=== PATIENT | male | born 1955 | race African-American/Black ===

== ENCOUNTER 2018-01-12 16:52 | Emergency (ER) | payer MEDICAID, MEDICARE, OTHER ==
[~2018-01-12] VITALS: Ht 177.8 cm; Wt 77.0 kg
[2018-01-12] MEDS ORDERED: CEPHALEXIN 250MG CAPSULE PO ONE (20:45)
[2018-01-12] MEDS ORDERED: TETANUS, DIPHTHERIA, PERTUSSIS VAC/PF 0.5ML (>7YR OLD) IM ONE (20:45)
[2018-01-12 21:21] VITALS: BP 121/66
== END 2018-01-12 21:23 | disposition home or self-care (01) ==
LOC: ER 16:52
DX: S91.104A Unspecified open wound of right lesser toe(s) without damage to nail, initial encounter (principal); B35.3 Tinea pedis; F32.9 Major depressive disorder, single episode, unspecified; Z98.890 Other specified postprocedural states; W26.8XXA Contact with other sharp object(s), not elsewhere classified, initial encounter; Y93.89 Activity, other specified; Y92.89 Other specified places as the place of occurrence of the external cause; Y99.8 Other external cause status
CPT/HCPCS: 90471; 90715; 99283

== ENCOUNTER 2021-06-12 14:33 | Emergency (ER) | payer MEDICARE, MEDICAID ==
[~2021-06-12] VITALS: Ht 170.2 cm; Wt 73.0 kg
[2021-06-12] MEDS ORDERED: IBUPROFEN 600MG TABLET PO STA (14:58)
[2021-06-12 15:25] LABS: HEMATOCRIT. 37.7 % (42.0-52.0); HEMOGLOBIN. 12.4 g/dL (14.0-18.0); MEAN CORPUSCULAR HEMOGLOBIN 27.9 pg (28.0-32.0); MEAN CORPUSCULAR VOLUME 84.6 fL (80.0-94.0); MEAN PLATELET VOLUME 8.3 fl (7.4-10.4); PLATELET 272 x1000/uL (130-400); RED BLOOD CELL COUNT 4.45 mill/uL (4.7-6.1); RED CELL DISTRIBUTION WIDTH 14.6 % (11.6-14.6)
[2021-06-12 15:33] LABS: CHLORIDE 108 mEq/L (98-107)
[2021-06-12 15:37] LABS: CLARITY URINE CLEAR (CLEAR); COLOR URINE YELLOW (YELLOW); KETONES URINE NEGATIVE (NEGATIVE); LEUKOCYTE ESTERASE URINE NEGATIVE (NEGATIVE); NITRITE URINE NEGATIVE (NEGATIVE); OCCULT BLOOD URINE NEGATIVE (NEGATIVE); PROTEIN URINE NEGATIVE (NEGATIVE); SPECIFIC GRAVITY URINE 1.015 (1.005-1.030); UROBILINOGEN URINE 0.2 E.U./dL (0.2-1.0)
[2021-06-12 15:56] LABS: PLATELET ESTIMATE NORMAL
[2021-06-12] MEDS ORDERED: NAPR-681 PO (17:59)
[2021-06-12] MEDS ORDERED: CLOT15CR27 TP (17:59)
[2021-06-12] MEDS ORDERED: PENICILLIN G BENZATHINE 2,400,000 UNITS/4ML SYR IM NR (18:00)
[2021-06-12 18:30] VITALS: BP 110/58
== END 2021-06-12 18:35 | disposition home or self-care (01) ==
LOC: ER 14:33
DX: M25.571 Pain in right ankle and joints of right foot (principal); R60.9 Edema, unspecified; N49.9 Inflammatory disorder of unspecified male genital organ; F32.9 Major depressive disorder, single episode, unspecified; M19.90 Unspecified osteoarthritis, unspecified site; Z98.890 Other specified postprocedural states
CPT/HCPCS: 36415; 73610; 80048; 81003; 85025; 86592; 86593; 86780; 93971; 96372; 99285; J0561

== ENCOUNTER 2022-02-05 02:37 | Emergency (ER) | payer MEDICARE, MEDICAID ==
[~2022-02-05] VITALS: Ht 170.2 cm; Wt 76.2 kg
[~2022-02-05 02:37] MED LIST: CLOT15CR27 TP; NAPR-681 PO
[2022-02-05 02:45] VITALS: BP 110/50
[2022-02-05] MEDS ORDERED: AZITHROMYCIN 500 MG TABLET PO ONE (04:30)
[2022-02-05] MEDS ORDERED: CEFTRIAXONE SODIUM 500 MG/VIAL IM ONE (04:30)
[2022-02-05 05:33] LABS: CLARITY URINE CLOUDY (CLEAR); COLOR URINE YELLOW (YELLOW); KETONES URINE NEGATIVE (NEGATIVE); LEUKOCYTE ESTERASE URINE 3+ (NEGATIVE); NITRITE URINE NEGATIVE (NEGATIVE); OCCULT BLOOD URINE TRACE (NEGATIVE); PH URINE 6.5 (4.5-8.0); PROTEIN URINE TRACE (NEGATIVE); SPECIFIC GRAVITY URINE 1.012 (1.005-1.030)
[2022-02-05] MEDS ORDERED: CEPH500C2 MT (05:38)
[2022-02-07 04:07] LABS: NEISSERIA GONORRHOEAE NAA Positive (Negative)
== END 2022-02-05 05:46 | disposition home or self-care (01) ==
LOC: ER 02:37
DX: N39.0 Urinary tract infection, site not specified (principal); Z20.2 Contact with and (suspected) exposure to infections with a predominantly sexual mode of transmission; M19.90 Unspecified osteoarthritis, unspecified site; F32.9 Major depressive disorder, single episode, unspecified; Z96.659 Presence of unspecified artificial knee joint
CPT/HCPCS: 81003; 87086; 87491; 87591; 96372; 99283; J0696

== ENCOUNTER 2022-06-10 00:25 | Emergency (ER) | payer MEDICARE, MEDICAID ==
[~2022-06-10] VITALS: Ht 167.6 cm; Wt 68.3 kg
[~2022-06-10 00:25] MED LIST changes: +CEPH500C2 MT
[2022-06-10 00:48] VITALS: BP 115/64
== END 2022-06-10 05:16 | disposition left against medical advice (07) ==
LOC: ER 00:25
DX: Z53.21 Procedure and treatment not carried out due to patient leaving prior to being seen by health care provider (principal)
CPT/HCPCS: 99281

== ENCOUNTER 2022-06-19 12:03 | Emergency (ER) | payer OTHER, MEDICAID ==
[~2022-06-19] VITALS: Ht 170.2 cm; Wt 76.0 kg
[2022-06-19] MEDS ORDERED: IBUP-2029 MT (14:15)
[2022-06-19] MEDS ORDERED: IBUPROFEN 600MG TABLET PO ONE (14:15)
[2022-06-19 14:26] VITALS: BP 115/66
== END 2022-06-19 15:04 | disposition home or self-care (01) ==
LOC: ER 12:03
DX: M25.571 Pain in right ankle and joints of right foot (principal); M25.471 Effusion, right ankle; F17.210 Nicotine dependence, cigarettes, uncomplicated
CPT/HCPCS: 73610; 99283

== ENCOUNTER 2022-08-04 02:31 | Emergency (ER) | payer OTHER, MEDICAID ==
[~2022-08-04] VITALS: Ht 170.2 cm; Wt 77.0 kg
[~2022-08-04 02:31] MED LIST changes: +IBUP-2029 MT
[2022-08-04 02:51] VITALS: BP 100/58
[2022-08-04 03:58] LABS: CLARITY URINE CLEAR (CLEAR); COLOR URINE YELLOW (YELLOW); KETONES URINE NEGATIVE (NEGATIVE); LEUKOCYTE ESTERASE URINE 3+ (NEGATIVE); NITRITE URINE NEGATIVE (NEGATIVE); OCCULT BLOOD URINE NEGATIVE (NEGATIVE); PH URINE 5.5 (4.5-8.0); PROTEIN URINE NEGATIVE (NEGATIVE); SPECIFIC GRAVITY URINE 1.014 (1.005-1.030); UROBILINOGEN URINE 0.2 E.U./dL (0.2-1.0)
[2022-08-04] MEDS ORDERED: LEVO-65 MT (05:29)
[2022-08-04] MEDS ORDERED: CEFTRIAXONE SODIUM 500 MG/VIAL IM ONE (05:45)
== END 2022-08-04 06:45 | disposition home or self-care (01) ==
LOC: ER 02:31
DX: N45.1 Epididymitis (principal); Z98.890 Other specified postprocedural states; Z79.899 Other long term (current) drug therapy
CPT/HCPCS: 74176; 81003; 99284

== ENCOUNTER 2022-08-10 12:58 | Emergency (ER) | payer OTHER, MEDICAID ==
[~2022-08-10] VITALS: Ht 162.6 cm; Wt 75.0 kg
[~2022-08-10 12:58] MED LIST changes: +LEVO-65 MT
[2022-08-10 13:07] VITALS: BP 104/60
[2022-08-10 15:41] LABS: CLARITY URINE CLEAR (CLEAR); COLOR URINE YELLOW (YELLOW); KETONES URINE NEGATIVE (NEGATIVE); LEUKOCYTE ESTERASE URINE NEGATIVE (NEGATIVE); NITRITE URINE NEGATIVE (NEGATIVE); OCCULT BLOOD URINE NEGATIVE (NEGATIVE); PH URINE 6.5 (4.5-8.0); PROTEIN URINE NEGATIVE (NEGATIVE); SPECIFIC GRAVITY URINE 1.014 (1.005-1.030); UROBILINOGEN URINE 0.2 E.U./dL (0.2-1.0)
[2022-08-10 17:09] LABS: EOSINOPHILS % 3.5 % (0.0-5.0); HEMATOCRIT. 40.7 % (42.0-52.0); HEMOGLOBIN. 13.6 g/dL (14.0-18.0); LYMPHOCYTES % 24.9 % (20.0-50.0); MEAN CORPUSCULAR HEMOGLOBIN 28.1 pg (28.0-32.0); MEAN CORPUSCULAR VOLUME 84.5 fL (80.0-94.0); MEAN PLATELET VOLUME 8.2 fl (7.4-10.4); NEUTROPHILS % 56.6 % (40.0-76.0); PLATELET 287 x1000/uL (130-400); RED BLOOD CELL COUNT 4.82 mill/uL (4.7-6.1); RED CELL DISTRIBUTION WIDTH 14.5 % (11.6-14.6)
[2022-08-10 17:18] LABS: CHLORIDE 109 mEq/L (98-107)
[2022-08-10 17:19] LABS: PROTHROMBIN TIME 10.4 sec (9.6-11.0)
== END 2022-08-10 17:34 | disposition left against medical advice (07) ==
LOC: ER 12:58
DX: K40.90 Unilateral inguinal hernia, without obstruction or gangrene, not specified as recurrent (principal); Z79.899 Other long term (current) drug therapy
CPT/HCPCS: 36415; 80053; 81003; 83605; 85025; 99283

== ENCOUNTER 2022-12-06 03:28 | Emergency (ER) | payer MEDICARE, MEDICAID ==
[~2022-12-06] VITALS: Ht 170.2 cm; Wt 73.0 kg
[2022-12-06 04:41] VITALS: TEMP 97.8; O2SAT 98
[2022-12-06] MEDS ORDERED: KETOROLAC 30MG/ML VIAL IV ONE (05:30)
[2022-12-06 06:04] VITALS: BP 116/52; PULSE 73; RESP 16
[2022-12-06] MEDS ORDERED: SULF1TAB48 MT (07:41)
[2022-12-06] MEDS ORDERED: IBUP-2029 MT (07:41)
== END 2022-12-06 07:20 | disposition left against medical advice (07) ==
LOC: ER 03:28
DX: M25.571 Pain in right ankle and joints of right foot (principal); Z98.890 Other specified postprocedural states; Z53.29 Procedure and treatment not carried out because of patient's decision for other reasons
CPT/HCPCS: 99284; 96374; 73610; 73630; J1885

== ENCOUNTER 2023-06-09 23:42 | Emergency (ER) | payer MEDICARE, MEDICAID ==
[~2023-06-09] VITALS: Ht 170.2 cm; Wt 77.0 kg
[~2023-06-09 23:42] MED LIST changes: +SULF1TAB48 MT
[2023-06-09 23:58] VITALS: TEMP 98.4; O2SAT 98
[2023-06-10 00:20] LABS: CLARITY URINE CLEAR (CLEAR); COLOR URINE YELLOW (YELLOW); GLUCOSE URINE NEGATIVE (NEGATIVE); KETONES URINE NEGATIVE (NEGATIVE); LEUKOCYTE ESTERASE URINE NEGATIVE (NEGATIVE); NITRITE URINE NEGATIVE (NEGATIVE); OCCULT BLOOD URINE NEGATIVE (NEGATIVE); PH URINE 5.5 (4.5-8.0); PROTEIN URINE NEGATIVE (NEGATIVE); SPECIFIC GRAVITY URINE 1.014 (1.005-1.030); UROBILINOGEN URINE 0.2 E.U./dL (0.2-1.0)
[2023-06-10 00:34] LABS: BASOPHILS % 1.2 % (0.0-2.0); EOSINOPHILS % 4.5 % (0.0-5.0); HEMATOCRIT. 36.9 % (42.0-52.0); HEMOGLOBIN. 12.5 g/dL (14.0-18.0); LYMPHOCYTES % 24.1 % (20.0-50.0); MEAN CORPUSCULAR HEMOGLOBIN 28.8 pg (28.0-32.0); MEAN CORPUSCULAR HGB CONC 33.9 g/dL (31.0-37.0); MEAN CORPUSCULAR VOLUME 84.9 fL (80.0-94.0); MEAN PLATELET VOLUME 9.3 fl (7.4-10.4); MONOCYTES % 11.5 % (2.0-8.0); NEUTROPHILS % 58.7 % (40.0-76.0); PLATELET 234 x1000/uL (130-400); RED BLOOD CELL COUNT 4.34 mill/uL (4.7-6.1); RED CELL DISTRIBUTION WIDTH 14.6 % (11.6-14.6); WHITE BLOOD COUNT 5.5 x1000/uL (4.5-11.0)
[2023-06-10 00:40] LABS: ALANINE AMINOTRANSFERASE 12 IU/L (10-49); ALBUMIN 4.1 g/dL (3.2-4.8); ASPARTATE AMINOTRANSFERASE 22 IU/L (<34); BILIRUBIN TOTAL 0.6 mg/dL (0.1-1.0); CALCIUM 8.8 mg/dL (8.7-10.4); CARBON DIOXIDE 23 mEq/L (21-32); CHLORIDE 108 mEq/L (98-107); GLUCOSE 106 mg/dL (70-105); POTASSIUM 3.8 mEq/L (3.5-5.1); PROTEIN TOTAL 7.4 g/dL (6.0-8.3); SODIUM 138 mEq/L (136-145); UREA NITROGEN BLOOD 16 mg/dL (9-23)
[2023-06-10] MEDS ORDERED: P20 MT (02:59)
[2023-06-10] MEDS ORDERED: HYPR15DR23 RIGHTEYE (02:59)
[2023-06-10] MEDS ORDERED: ACYC200C31 MT (02:59)
[2023-06-10 03:57] VITALS: BP 94/50; PULSE 75; RESP 18
== END 2023-06-10 04:01 | disposition home or self-care (01) ==
LOC: ER 23:42
DX: G51.0 Bell's palsy (principal); F32.A Depression, unspecified; Z96.653 Presence of artificial knee joint, bilateral; Z98.890 Other specified postprocedural states
CPT/HCPCS: 36415; 80053; 81003; 85025; 93005; 99284

== ENCOUNTER 2023-08-12 01:45 | Emergency (ER) | payer MEDICARE, MEDICAID ==
[~2023-08-12 01:45] MED LIST changes: +ACYC200C31 MT; +HYPR15DR23 RIGHTEYE; +P20 MT
[2023-08-12 02:22] VITALS: PULSE 87
[2023-08-12] MEDS ORDERED: IBUP-2029 MT (06:06)
[2023-08-12] MEDS ORDERED: CEPH500T MT (06:06)
== END 2023-08-12 06:21 | disposition home or self-care (01) ==
LOC: ER 01:45
DX: L03.115 Cellulitis of right lower limb (principal); Z79.899 Other long term (current) drug therapy
CPT/HCPCS: 99283